=== PATIENT | female | born 1940 | race Caucasian/White ===

== ENCOUNTER 2016-04-26 14:10 | Emergency (ER) | payer MEDICARE ==
--- NOTE | 2016-04-26 15:33 | UC ---
Complaint Female HPI - HPI Summary HPI Summary: complaint of discomfort with urination that started approx yesterday increase in urgency and frequency of urination only able to urinate small amounts denies fever and chills denies lower back pain and abdominal pain hasn't taken any medication for her symptoms - History Of Current Complaint Chief Complaint: UCGU Stated Complaint: URINARY ISSUE Time Seen by Provider: 04/26/16 15:27 Hx Obtained From: Patient - Allergies/Home Medications Allergies/Adverse Reactions: Allergies Allergy/AdvReac Type Severity Reaction Status Date / Time Lisinopril Allergy Severe Anaphylatic Verified 04/26/16 15:10 Shock Amoxicillin Allergy Unknown Unknown Verified 04/26/16 15:10 Reaction Details CATS Allergy Severe ASTHMA Uncoded 04/26/16 15:10 Home Medications: Home Medications Loratadine [Claritin] 10 mg PO DAILY 04/26/16 [History Confirmed 04/26/16] PMH/Surg Hx/FS Hx/Imm Hx Previously Healthy: Yes Endocrine History Of: Reports: Diabetes - diet controlled Cardiovascular History Of: Reports: Hypertension - W/MEDS GI/ History Of: Reports: Gall Bladder Disease - S/p cholecystectomy, Kidney Stones - s/p surgery for removal in 1976 - Surgical History Surgical History: Yes Surgery Procedure, Year, and Place: Kidney stone removal, 1976. Cholecystectomy , [facility] [place], December 2013 - Family History Known Family History: Negative: Cardiac Disease, Hypertension, Diabetes Family History: non contributory - Social History Occupation: Retired Lives: With Family Alcohol Use: Rare Alcohol Amount: WINE Substance Use Type: None Smoking Status (MU): Never Smoked Tobacco Have You Smoked in the Last Year: No - Immunization History Most Recent Influenza Vaccination: Never Most Recent Tetanus Shot: Unknown Most Recent Pneumonia Vaccination: Never Review of Systems Constitutional: Negative Skin: Negative Eyes: Negative ENT: Negative Respiratory: Negative Cardiovascular: Negative Gastrointestinal: Negative Genitourinary: Dysuria, Frequency, Urgency Motor: Negative Neurovascular: Negative Musculoskeletal: Negative Neurological: Negative Psychological: Negative All Other Systems Reviewed And Are Negative: Yes Physical Exam Triage Information Reviewed: Yes Appearance: No Pain Distress, Well-Nourished Vital Signs: Initial Vital Signs Temp 98.7 F 04/26/16 15:04 Pulse 125 04/26/16 15:04 Resp 16 04/26/16 15:04 BP 171/85 04/26/16 15:04 Pulse Ox 99 02/19/17 15:04 Vital Signs Reviewed: Yes Eyes: Positive: Conjunctiva Clear ENT: Positive: Pharynx normal, TMs normal Neck: Positive: No Lymphadenopathy Respiratory: Positive: Lungs clear, Normal breath sounds, No respiratory distress Cardiovascular: Positive: No Murmur, Pulses Normal, Brisk Capillary Refill, Tachycardia Abdomen Description: Positive: Nontender, No Organomegaly, Soft. Negative: CVA Tenderness (R), CVA Tenderness (L), Distended, Guarding Bowel Sounds: Positive: Present Musculoskeletal: Positive: No Edema Neurological: Positive: Alert Psychological Exam: Normal Skin Exam: Normal Complaint Female Dx - Course Course Of Treatment: exam completed. will treat for UTI. discussed tachycardia - refuses IV fluids. discussed improtance o f increasing fluids and followup with PCP in 1-2 days- discussed s/s of when to seek care in the ED - Differential Dx/Diagnosis Differential Diagnosis/HQI/PQRI: Ureteral Stone, Urinary Tract Infection Provider Diagnoses: UTI Discharge - Discharge Plan Condition: Stable Disposition: HOME Prescriptions: Nitrofurantoin Monohyd Macro [Macrobid] 100 mg PO BID #10 cap Patient Education Materials: Urinary Tract Infection in Women (ED) Referrals: Jesus Hubbard MD [Primary Care Provider] - Additional Instructions: Start antibiotic as directed Increase fluids and rest Take acetaminophen or ibuprofen for fever or pain Please review your discharge instructions. If your symptoms do not improve please call your primary care provider or return to urgent care
[2016-04-26 16:00] VITALS: BP 145/90
== END 2016-04-26 16:05 | disposition home or self-care (01) ==
LOC: UCEAST 14:10
DX: N39.0 Urinary tract infection, site not specified (principal); E11.9 Type 2 diabetes mellitus without complications; I10 Essential (primary) hypertension; Z88.6 Allergy status to analgesic agent; Z88.1 Allergy status to other antibiotic agents
CPT/HCPCS: 81002; 87086; 99212; G0463

== ENCOUNTER 2017-12-01 14:10 | Emergency (ER) | payer MEDICARE ==
[2017-12-01] MEDS ORDERED: diPHENhydraMINE PO* 25 MG PO ONE (14:53)
[2017-12-01] MEDS ORDERED: predniSONE TAB* 20 MG PO ONE (14:53)
--- NOTE | 2017-12-01 14:56 | ED ---
Allergic Reaction/Systemic - HPI Summary HPI Summary: This patient is a 77 year old F presenting to ED with a chief complaint of L- sided tongue swelling since 0900 this morning. The CC is described as currently alleviated but is still sore. The patient rates the pain 0/10 in severity. Symptoms aggravated by nothing. Symptoms alleviated by spontaneous resolution. Patient denies SOB and CP. She had a similar episode last week but on the R side. - History of Current Complaint Chief Complaint: EDAllergicReaction Time Seen by Provider: 12/01/17 14:46 Hx Obtained From: Patient Onset/Duration: Sudden Onset, Started hours ago, Resolved Timing: Constant Severity Currently: None Pain Intensity: 0 Pain Scale Used: 0-10 Numeric Character: Swelling - of the L side of the tongue Aggravating Factor(s): Nothing Alleviating Factor(s): Other - spontaneous resolution Associated Signs And Symptoms: Positive: Other: - Patient denies SOB and CP. - Allergies/Home Medications Allergies/Adverse Reactions: Allergies Allergy/AdvReac Type Severity Reaction Status Date / Time lisinopril Allergy Severe Anaphylatic Verified 12/01/17 15:07 Shock amoxicillin Allergy Unknown Unknown Verified 12/01/17 15:07 Reaction Details CATS Allergy Severe ASTHMA Uncoded 04/26/16 15:10 Home Medications: Home Medications Sitagliptin (NF) [Januvia (NF)] 50 mg PO DAILY 12/01/17 [History Confirmed 12/01] PMH/Surg Hx/FS Hx/Imm Hx Endocrine/Hematology History: Reports: Hx Diabetes - diet controlled Cardiovascular History: Reports: Hx Hypertension - W/MEDS, Hx Rheumatic Fever - As a child Respiratory History: Reports: Hx Seasonal Allergies GI History: Reports: Hx Gall Bladder Disease - S/p cholecystectomy, Hx Gastroesophageal Reflux Disease, Other GI Disorders - Gallstones History: Reports: Hx Kidney Stones - s/p surgery for removal in 1976 Sensory History: Reports: Hx Contacts or Glasses Denies: Hx Hearing Aid Opthamlomology History: Reports: Hx Contacts or Glasses - Surgical History Surgery Procedure, Year, and Place: Kidney stone removal, 1976. Cholecystectomy , [facility] [place], December 2013 Hx Anesthesia Reactions: No Infectious Disease History: No Infectious Disease History: Denies: Hx Clostridium Difficile, Hx Hepatitis, Hx Human Immunodeficiency Virus (HIV), Hx of Known/Suspected MRSA, Hx Shingles, Hx Tuberculosis, Hx Known/ Suspected VRE, Hx Known/Suspected VRSA, History Other Infectious Disease, Traveled Outside the [place] in Last 30 Days - Family History Known Family History: Negative: Cardiac Disease, Hypertension, Diabetes Family History: non contributory - Social History Alcohol Use: Rare Alcohol Amount: WINE Substance Use Type: Reports: None Hx Tobacco Use: No Smoking Status (MU): Never Smoked Tobacco Have You Smoked in the Last Year: No Review of Systems Positive: Other - L-sided tongue swelling Negative: Chest Pain Negative: Shortness Of Breath All Other Systems Reviewed And Are Negative: Yes Physical Exam - Summary Physical Exam Summary: Appearance: Well appearing, no pain distress Skin: warm, dry, reflects adequate perfusion Head/face: normal Eyes: EOMI, ALEX ENT: Swollen tongue on the L side Neck: supple, non-tender Respiratory: CTA, breath sounds present Cardiovascular: RRR, pulses symmetrical Abdomen: non-tender, soft Bowel: present Musculoskeletal: normal, strength/ROM intact Neuro: normal, sensory motor intact, A&Ox3 Triage Information Reviewed: Yes Vital Signs On Initial Exam: Initial Vitals Temp Pulse Resp BP Pulse Ox 98 F 125 21 168/109 98 12/01/17 14:15 12/01/17 14:15 12/01/17 14:15 12/01/17 14:15 12/01/17 14:15 Vital Signs Reviewed: Yes Diagnostics - Vital Signs Vital Signs Temp Pulse Resp BP Pulse Ox 12/01/17 14:46 146/94 12/01/17 14:42 125 96 12/01/17 14:15 98 F 125 21 168/109 98 - Laboratory Lab Statement: Any lab studies that have been ordered have been reviewed, and results considered in the medical decision making process. Allergic Reaction Course/Dx - Course Assessment/Plan: This patient is a 77 year old F presenting to ED with a chief complaint of L-sided tongue swelling since 0900 this morning. In the ED course, the patient was given Benadryl and prednisone. The patient will be discharged and patient understands and agrees with this plan. - Diagnoses Differential Diagnosis/HQI/PQRI: Positive: Angioedema, Local Allergic Reaction, Urticaria, Other - allergic reaction Provider Diagnoses: Allergic reaction Discharge - Sign-Out/Discharge Documenting (check all that apply): Patient Departure - discharge - Discharge Plan Condition: Stable Disposition: HOME Prescriptions: diPHENhydraMINE PO* [Benadryl PO 25 MG TAB*] 25 mg PO TID PRN #15 tab MDD 3 PRN Reason: Allergy Symptoms predniSONE TAB* [Deltasone 20 MG TAB*] 40 mg PO DAILY #4 tab Patient Education Materials: General Allergic Reaction (ED), Allergy Testing ( ED) Referrals: Jesus Hubbard MD [Primary Care Provider] - 3 Days Additional Instructions: PLEASE RETURN TO THE ED FOR ANY NEW OR WORSENING SYMPTOMS. - Billing Disposition and Condition Condition: STABLE Disposition: Home - Attestation Statements Document Initiated by Sivaibe: Yes Documenting Scribe: Anderson Hobson Provider For Whom Dontia is Documenting (Include Credential): Aftab Clark MD Scribe Attestation: Anderson Hollis, scribed for Aftab Clark MD on 12/01/17 at 1740. Scribe Documentation Reviewed: Yes Provider Attestation: The documentation as recorded by the Anderson quiñones accurately reflects the service I personally performed and the decisions made by , Aftab Clark MD
[2017-12-01 16:09] VITALS: BP 144/90
== END 2017-12-01 16:09 | disposition home or self-care (01) ==
LOC: ED 14:10
DX: T78.40XA Allergy, unspecified, initial encounter (principal); I10 Essential (primary) hypertension; E11.9 Type 2 diabetes mellitus without complications; Z79.899 Other long term (current) drug therapy; Z88.8 Allergy status to other drugs, medicaments and biological substances; Z88.3 Allergy status to other anti-infective agents
CPT/HCPCS: 99283; A9270-GY; J7512

== ENCOUNTER 2020-03-08 14:27 | Inpatient (IN) ==
[2020-03-08] MEDS ORDERED: NS 0.9% 1000 ml BAG 1,000 ML IV.FLUID IV ONE (14:49)
[2020-03-08] MEDS ORDERED: NS 0.9% 1000 ml BAG 2,000 ML IV ONE (14:49)
[2020-03-08 15:09] LABS: ABS Basophils 0.1 10^3/ul (0-0.2); ABS Eosinophils 0.2 10^3/ul (0-0.6); ABS Lymphocytes 1.1 10^3/ul (1.0-4.8); ABS Monocytes 0.6 10^3/ul (0-0.8); ABS Neutrophils 9.2 10^3/ul (1.5-7.7); Eosinophil % 1.8 %; Hematocrit 43 % (35-47); Hemoglobin 14.8 g/dL (12.0-16.0); Lymphocyte % 9.9 %; Mean Corpuscular HGB Conc 35 g/dL (31-36); Mean Corpuscular Hemoglobin 27 pg (27-31); Mean Corpuscular Volume 78 fL (80-97); Mean Platelet Volume 7.9 fL (7.4-10.4); Platelet Count 312 10^3/uL (150-450); Red Blood Count 5.54 10^6 /uL (3.70-4.87); Red Cell Distribution Width 15 % (10-15); White Blood Count 11.3 10^3/uL (3.5-10.8)
[2020-03-08 15:25] LABS: Albumin 4.3 g/dL (3.2-5.2); Albumin/Globulin Ratio 1.1 (1-3); BUN/Creatinine Ratio 12.5 (8-20); C Reactive Protein 44.63 mg/L (<8.01); Calcium 10.1 mg/dL (8.6-10.3); EGFR African American 94.1 (>60); EGFR Non-African American 77.7 (>60); Magnesium 1.1 mg/dL (1.9-2.7); Potassium 2.8 mmol/L (3.5-5.0); Total Bilirubin 0.5 mg/dL (0.2-1.0); Total Protein 8.3 g/dL (6.4-8.9)
[2020-03-08] MEDS ORDERED: Iodixanol (CONTRAST) 320 MG/ML 100 ML SDV IV ONE (15:28)
[2020-03-08] MEDS ORDERED: Magnesium Sulf 4 GM/100 ML IV 4,000 MG/100 ML BAG IVPB ONE ×2 (15:31→23:00)
[2020-03-08] MEDS ORDERED: Potassium Chlor 20 meq TAB.ER PO ONE ×2 (15:32→23:24)
[2020-03-08 15:36] LABS: Urine Appearance Clear; Urine Bilirubin Negative (Negative); Urine Blood Negative (Negative); Urine Color Yellow; Urine Glucose Negative (Negative); Urine Ketones Negative (Negative); Urine Nitrite Negative (Negative); Urine Protein Negative (Negative); Urine Specific Gravity 1.004 (1.010-1.030); Urine Urobilinogen Negative (Negative)
[2020-03-08] MEDS ORDERED: Potassium Chloride LIQUID 20 MEQ/15 ML LIQUID PO ONE (16:27)
[2020-03-08] MEDS ORDERED: Ciprofloxacin 400mg IVPREMIX 400 MG/200 ML BAG IVPB ONE (17:11)
[2020-03-08] MEDS ORDERED: metroNIDAZOLE IV 500 MG/100ML 500 MG/100 ML BAG IVPB ONE (17:11)
[2020-03-08] MEDS ORDERED: NS 0.9% 1000 ml BAG 1,000 ML IV SCH (18:00)
[2020-03-08] MEDS: Heparin 5000 UNITS/ML 1 mL VIAL SUBCUT SCH (21:49)
[2020-03-08 23:20] LABS: BUN/Creatinine Ratio 10.5 (8-20); Calcium 8.8 mg/dL (8.6-10.3); EGFR African American 123.2 (>60); EGFR Non-African American 101.8 (>60); Potassium 3.1 mmol/L (3.5-5.0)
[2020-03-08] MEDS: NS 0.9% 1000 ml BAG 1,000 ML IV SCH (23:24)
[2020-03-09] MEDS: Potassium Chloride LIQUID 20 MEQ/15 ML LIQUID PO SCH ×2 (00:30→01:57)
[2020-03-09] MEDS ORDERED: Potassium Chlor 20 meq TAB.ER PO ONE (00:30)
[2020-03-09] MEDS ORDERED: metroNIDAZOLE IV 250 MG/50ML 50 ML IVPB SCH (04:00)
[2020-03-09] MEDS: metroNIDAZOLE IV 500 MG/100ML 100 ML IVPB SCH ×3 (04:15→21:26)
[2020-03-09] MEDS: Heparin 5000 UNITS/ML 1 mL VIAL SUBCUT SCH ×3 (05:39→20:08)
[2020-03-09] MEDS: Ciprofloxacin 400mg IVPREMIX 400 MG/200 ML BAG IVPB SCH ×2 (05:39→20:13)
[2020-03-09 07:18] LABS: ABS Basophils 0.1 10^3/ul (0-0.2); ABS Eosinophils 0.4 10^3/ul (0-0.6); ABS Lymphocytes 2.1 10^3/ul (1.0-4.8); ABS Monocytes 0.7 10^3/ul (0-0.8); ABS Neutrophils 4.3 10^3/ul (1.5-7.7); Eosinophil % 5.3 %; Hematocrit 37 % (35-47); Hemoglobin 12.1 g/dL (12.0-16.0); Lymphocyte % 28.1 %; Mean Corpuscular HGB Conc 33 g/dL (31-36); Mean Corpuscular Hemoglobin 26 pg (27-31); Mean Corpuscular Volume 79 fL (80-97); Mean Platelet Volume 7.9 fL (7.4-10.4); Platelet Count 263 10^3/uL (150-450); Red Blood Count 4.64 10^6 /uL (3.70-4.87); Red Cell Distribution Width 15 % (10-15); White Blood Count 7.6 10^3/uL (3.5-10.8)
[2020-03-09 07:22] LABS: Anion Gap 6 mmol/L (2-11); BUN/Creatinine Ratio 8.9 (8-20); Blood Urea Nitrogen 5 mg/dL (6-24); CO2 Carbon Dioxide 24 mmol/L (22-32); Calcium 8.1 mg/dL (8.6-10.3); Chloride 108 mmol/L (101-111); EGFR African American 125.7 (>60); EGFR Non-African American 103.9 (>60); Glucose 171 mg/dL (70-100); Magnesium 2.7 mg/dL (1.9-2.7); Potassium 3.6 mmol/L (3.5-5.0); Sodium 138 mmol/L (135-145)
[2020-03-09 07:24] LABS: % Iron Saturation 11 % (15-55); Iron 34 ug/dL (50-212); Total Iron Binding Capacity 312 mcg/dL (250-450); Transferrin 223 mg/dL (203-362); Unsaturated Iron Binding < 297 ug/dL
[2020-03-09 07:43] LABS: Ferritin 46.8 ng/mL (11-307)
[2020-03-09] MEDS: NS 0.9% 1000 ml BAG 1,000 ML IV SCH ×2 (08:55→18:18)
[2020-03-10] MEDS: NS 0.9% 1000 ml BAG 1,000 ML IV SCH (04:26)
[2020-03-10] MEDS: Heparin 5000 UNITS/ML 1 mL VIAL SUBCUT SCH ×3 (05:04→22:40)
[2020-03-10] MEDS: metroNIDAZOLE IV 500 MG/100ML 100 ML IVPB SCH ×3 (05:04→22:41)
[2020-03-10 07:03] LABS: ABS Basophils 0.1 10^3/ul (0-0.2); ABS Eosinophils 0.5 10^3/ul (0-0.6); ABS Lymphocytes 1.9 10^3/ul (1.0-4.8); ABS Monocytes 0.5 10^3/ul (0-0.8); ABS Neutrophils 4.2 10^3/ul (1.5-7.7); Hematocrit 38 % (35-47); Hemoglobin 12.7 g/dL (12.0-16.0); Mean Corpuscular HGB Conc 34 g/dL (31-36); Mean Corpuscular Hemoglobin 27 pg (27-31); Mean Corpuscular Volume 79 fL (80-97); Mean Platelet Volume 7.9 fL (7.4-10.4); Platelet Count 270 10^3/uL (150-450); Red Blood Count 4.76 10^6 /uL (3.70-4.87); Red Cell Distribution Width 15 % (10-15); White Blood Count 7.2 10^3/uL (3.5-10.8)
[2020-03-10 07:23] LABS: Albumin 3.7 g/dL (3.2-5.2); Albumin/Globulin Ratio 1.1 (1-3); BUN/Creatinine Ratio 8.8 (8-20); Calcium 8.6 mg/dL (8.6-10.3); EGFR African American 123.2 (>60); EGFR Non-African American 101.8 (>60); Globulin 3.5 g/dL (2-4); Potassium 3.3 mmol/L (3.5-5.0); Total Bilirubin 0.4 mg/dL (0.2-1.0); Total Protein 7.2 g/dL (6.4-8.9)
[2020-03-10] MEDS ORDERED: Potassium Chlor 20 meq TAB.ER PO ONE (07:27)
[2020-03-10] MEDS: Ciprofloxacin 400mg IVPREMIX 400 MG/200 ML BAG IVPB SCH ×2 (10:17→20:55)
[2020-03-11] MEDS: NS 0.9% 1000 ml BAG 1,000 ML IV SCH ×2 (02:38→13:26)
[2020-03-11 05:50] LABS: Hematocrit 38 % (35-47); Hemoglobin 12.7 g/dL (12.0-16.0); Mean Corpuscular HGB Conc 34 g/dL (31-36); Mean Corpuscular Hemoglobin 26 pg (27-31); Mean Corpuscular Volume 78 fL (80-97); Mean Platelet Volume 7.5 fL (7.4-10.4); Platelet Count 267 10^3/uL (150-450); Red Blood Count 4.84 10^6 /uL (3.70-4.87); Red Cell Distribution Width 15 % (10-15); White Blood Count 8.5 10^3/uL (3.5-10.8)
[2020-03-11] MEDS: Heparin 5000 UNITS/ML 1 mL VIAL SUBCUT SCH ×3 (05:52→22:55)
[2020-03-11] MEDS: metroNIDAZOLE IV 500 MG/100ML 100 ML IVPB SCH ×3 (05:52→22:51)
[2020-03-11 05:59] LABS: INR 1.16 (0.82-1.09)
[2020-03-11 06:07] LABS: Albumin 3.7 g/dL (3.2-5.2); Albumin/Globulin Ratio 1.1 (1-3); BUN/Creatinine Ratio 4.9 (8-20); Calcium 8.6 mg/dL (8.6-10.3); EGFR African American 113.9 (>60); EGFR Non-African American 94.1 (>60); Globulin 3.4 g/dL (2-4); Magnesium 1.5 mg/dL (1.9-2.7); Potassium 3.1 mmol/L (3.5-5.0); Total Bilirubin 0.5 mg/dL (0.2-1.0); Total Protein 7.1 g/dL (6.4-8.9)
[2020-03-11] MEDS: Ciprofloxacin 400mg IVPREMIX 400 MG/200 ML BAG IVPB SCH ×2 (09:39→21:28)
[2020-03-11] MEDS ORDERED: Magnesium Sulfate IV 3 GM in NS 0.9% 100 ml BAG 100 ML IVPB ONE (21:18)
[2020-03-12] MEDS: Potassium Chlor 20 meq TAB.ER PO ONE ×2 (01:26→01:29)
[2020-03-12] MEDS ORDERED: Potassium Chloride LIQUID 20 MEQ/15 ML LIQUID PO ONE (02:00)
[2020-03-12] MEDS: KCL 20 MEQ/100 ML IVPREMIX 20 MEQ/100 ML BAG IV SCH ×2 (02:25→07:17)
[2020-03-12] MEDS ORDERED: Metoclopramide 5 MG/ML VIAL (10 mg) IV PRN (03:09)
[2020-03-12] MEDS: Heparin 5000 UNITS/ML 1 mL VIAL SUBCUT SCH ×3 (05:23→23:00)
[2020-03-12] MEDS: metroNIDAZOLE IV 500 MG/100ML 100 ML IVPB SCH (06:02)
[2020-03-12] MEDS ORDERED: Ondansetron 4 mg VIAL 2 MG/ML 2 ml VIAL IV ONE (06:17)
[2020-03-12] MEDS ORDERED: KCL 20 MEQ/100 ML IVPREMIX 20 MEQ/100 ML BAG ONE (07:14)
[2020-03-12 07:34] LABS: ABS Basophils 0.1 10^3/ul (0-0.2); ABS Eosinophils 0.3 10^3/ul (0-0.6); ABS Lymphocytes 1.7 10^3/ul (1.0-4.8); ABS Monocytes 0.5 10^3/ul (0-0.8); ABS Neutrophils 6.5 10^3/ul (1.5-7.7); Eosinophil % 2.9 %; Hematocrit 38 % (35-47); Hemoglobin 12.7 g/dL (12.0-16.0); Lymphocyte % 18.5 %; Mean Corpuscular HGB Conc 33 g/dL (31-36); Mean Corpuscular Hemoglobin 26 pg (27-31); Mean Corpuscular Volume 79 fL (80-97); Mean Platelet Volume 7.5 fL (7.4-10.4); Platelet Count 269 10^3/uL (150-450); Red Blood Count 4.85 10^6 /uL (3.70-4.87); Red Cell Distribution Width 15 % (10-15)
[2020-03-12 07:51] LABS: BUN/Creatinine Ratio 5.2 (8-20); Calcium 8.3 mg/dL (8.6-10.3); EGFR African American 120.7 (>60); EGFR Non-African American 99.8 (>60); Magnesium 2.1 mg/dL (1.9-2.7); Potassium 3.6 mmol/L (3.5-5.0)
[2020-03-12] MEDS: Ciprofloxacin 400mg IVPREMIX 400 MG/200 ML BAG IVPB SCH (10:13)
[2020-03-12] MEDS ORDERED: fentaNYL 100 mcg/2 ml 50 MCG/ML VIAL ONE (11:42)
[2020-03-12] MEDS: metroNIDAZOLE IV 500 MG/100ML 500 MG/100 ML BAG IVPB SCH (16:51)
[2020-03-12] MEDS ORDERED: cefTRIAXone 1 gm/50 mL NS BAG 1 GM/50 ML BAG IVPB SCH (21:00)
[2020-03-13] MEDS: metroNIDAZOLE IV 500 MG/100ML 500 MG/100 ML BAG IVPB SCH (06:32)
[2020-03-13] MEDS: Heparin 5000 UNITS/ML 1 mL VIAL SUBCUT SCH ×3 (06:32→21:57)
[2020-03-13 07:08] LABS: ABS Basophils 0.1 10^3/ul (0-0.2); ABS Eosinophils 0.3 10^3/ul (0-0.6); ABS Monocytes 0.7 10^3/ul (0-0.8); Eosinophil % 3.4 %; Hematocrit 38 % (35-47); Hemoglobin 12.8 g/dL (12.0-16.0); Lymphocyte % 20.2 %; Mean Corpuscular HGB Conc 33 g/dL (31-36); Mean Corpuscular Hemoglobin 27 pg (27-31); Mean Corpuscular Volume 80 fL (80-97); Mean Platelet Volume 7.9 fL (7.4-10.4); Platelet Count 249 10^3/uL (150-450); Red Blood Count 4.82 10^6 /uL (3.70-4.87); Red Cell Distribution Width 15 % (10-15); White Blood Count 10.1 10^3/uL (3.5-10.8)
[2020-03-13 07:13] LABS: BUN/Creatinine Ratio 5.8 (8-20); Calcium 8.9 mg/dL (8.6-10.3); EGFR African American 98.8 (>60); EGFR Non-African American 81.7 (>60); Magnesium 1.8 mg/dL (1.9-2.7); Potassium 3.2 mmol/L (3.5-5.0)
[2020-03-13] MEDS ORDERED: Potassium Chlor 20 meq TAB.ER PO ONE (07:52)
[2020-03-13] MEDS: Sulfamethox/Trimethoprim DS TAB 800/160 mg PO SCH (21:58)
[2020-03-14 06:51] LABS: ABS Basophils 0.1 10^3/ul (0-0.2); ABS Eosinophils 0.3 10^3/ul (0-0.6); ABS Lymphocytes 2.1 10^3/ul (1.0-4.8); ABS Monocytes 0.7 10^3/ul (0-0.8); ABS Neutrophils 6.3 10^3/ul (1.5-7.7); Eosinophil % 3.4 %; Hematocrit 37 % (35-47); Hemoglobin 12.5 g/dL (12.0-16.0); Mean Corpuscular HGB Conc 34 g/dL (31-36); Mean Corpuscular Hemoglobin 27 pg (27-31); Mean Corpuscular Volume 79 fL (80-97); Mean Platelet Volume 7.9 fL (7.4-10.4); Platelet Count 249 10^3/uL (150-450); Red Blood Count 4.73 10^6 /uL (3.70-4.87); Red Cell Distribution Width 15 % (10-15); White Blood Count 9.6 10^3/uL (3.5-10.8)
[2020-03-14 07:07] LABS: Albumin 3.5 g/dL (3.2-5.2); Albumin/Globulin Ratio 1.1 (1-3); BUN/Creatinine Ratio 6.8 (8-20); EGFR African American 91.1 (>60); EGFR Non-African American 75.3 (>60); Globulin 3.2 g/dL (2-4); Potassium 3.4 mmol/L (3.5-5.0); Total Bilirubin 0.4 mg/dL (0.2-1.0); Total Protein 6.7 g/dL (6.4-8.9)
[2020-03-14] MEDS: Heparin 5000 UNITS/ML 1 mL VIAL SUBCUT SCH (07:38)
[2020-03-14 08:38] LABS: Magnesium 1.6 mg/dL (1.9-2.7)
[2020-03-14] MEDS ORDERED: Magnesium Sulf 4 GM/100 ML IV 4,000 MG/100 ML BAG IVPB ONE (08:49)
[2020-03-14] MEDS: Sulfamethox/Trimethoprim DS TAB 800/160 mg PO SCH (10:49)
[2020-03-14 13:48] VITALS: BP 102/58
== END 2020-03-14 16:25 | disposition home health service (06) | DRG 392 ==
LOC: ED 14:27 → MEDTELE 20:38
PROVIDERS: ADMIT Internal Medicine; ATTEND Internal Medicine

== ENCOUNTER 2020-04-30 21:19 | Inpatient (IN) ==
[2020-04-30 21:52] LABS: Urine Appearance Clear; Urine Bilirubin Negative (Negative); Urine Blood Negative (Negative); Urine Color Yellow; Urine Glucose Negative (Negative); Urine Ketones Negative (Negative); Urine Nitrite Negative (Negative); Urine Protein Negative (Negative); Urine Urobilinogen Negative (Negative)
[2020-04-30] MEDS ORDERED: NS 0.9% 1000 ml BAG 1,000 ML IV.FLUID IV ONE (22:50)
[2020-04-30] MEDS ORDERED: metroNIDAZOLE IV 500 MG/100ML 500 MG/100 ML BAG IVPB ONE (22:55)
[2020-04-30] MEDS ORDERED: Cefepime 2 GM in NS 0.9% 50 ML 50 ML IVPB ONE (22:55)
[2020-04-30] MEDS ORDERED: Vancomycin 1,000 MG in NS 0.9% 250 ml 250 ML IVPB ONE (23:00)
[2020-04-30 23:10] LABS: ABS Basophils 0.1 10^3/ul (0-0.2); ABS Eosinophils 0.2 10^3/ul (0-0.6); ABS Lymphocytes 1.8 10^3/ul (1.0-4.8); ABS Monocytes 0.7 10^3/ul (0-0.8); ABS Neutrophils 14.2 10^3/ul (1.5-7.7); Eosinophil % 1.4 %; Hematocrit 41 % (35-47); Hemoglobin 13.2 g/dL (12.0-16.0); Lymphocyte % 10.8 %; Mean Corpuscular HGB Conc 33 g/dL (31-36); Mean Corpuscular Hemoglobin 25 pg (27-31); Mean Corpuscular Volume 78 fL (80-97); Mean Platelet Volume 7.8 fL (7.4-10.4); Platelet Count 300 10^3/uL (150-450); Red Blood Count 5.22 10^6 /uL (3.70-4.87); Red Cell Distribution Width 15 % (10-15); White Blood Count 17.1 10^3/uL (3.5-10.8)
[2020-04-30 23:19] LABS: Activated Partial Thrombo Time 27.5 seconds (26.0-38.0); INR 1.23 (0.82-1.09)
[2020-04-30 23:28] LABS: ALT 8 U/L (7-52); AST 16 U/L (13-39); Albumin 3.9 g/dL (3.2-5.2); Alkaline Phosphatase 107 U/L (34-104); BUN/Creatinine Ratio 11.7 (8-20); Blood Urea Nitrogen 7 mg/dL (6-24); C Reactive Protein 39.18 mg/L (<8.01); CO2 Carbon Dioxide 26 mmol/L (22-32); Calcium 7.7 mg/dL (8.6-10.3); Chloride 100 mmol/L (101-111); EGFR African American 116.1 (>60); EGFR Non-African American 95.9 (>60); Globulin 3.8 g/dL (2-4); Glucose 167 mg/dL (70-100); Sodium 138 mmol/L (135-145); Total Protein 7.7 g/dL (6.4-8.9)
[2020-04-30 23:31] LABS: Anion Gap 12 mmol/L (2-11); Potassium 2.6 mmol/L (3.5-5.0)
[2020-04-30] MEDS ORDERED: Cefepime 2 GM in Dextrose 2 GM/50 ML BAG IV ONE (23:45)
[2020-04-30] MEDS ORDERED: Iodixanol (CONTRAST) 320 MG/ML 100 ML SDV IV ONE (23:59)
[2020-05-01 00:48] LABS: Troponin I 0.01 ng/mL (<0.03)
[2020-05-01] MEDS: KCL 10 MEQ/50 ML IVPREMIX 10 MEQ/50 ML BAG IV SCH ×2 (01:03→02:28)
[2020-05-01] MEDS ORDERED: Potassium Chloride LIQUID 20 MEQ/15 ML LIQUID PO ONE (04:00)
[2020-05-01] MEDS: Heparin 5000 UNITS/ML 1 mL VIAL SUBCUT SCH ×3 (04:39→22:43)
[2020-05-01] MEDS: NS 0.9% 1000 ml BAG 1,000 ML IV SCH ×2 (04:46→15:40)
[2020-05-01] MEDS: Ondansetron 4 mg VIAL 2 MG/ML 2 ml VIAL IV PRN ×2 (05:17→18:01)
[2020-05-01 07:14] LABS: ABS Eosinophils 0.2 10^3/ul (0-0.6); ABS Lymphocytes 2.2 10^3/ul (1.0-4.8); ABS Monocytes 0.6 10^3/ul (0-0.8); ABS Neutrophils 7.3 10^3/ul (1.5-7.7); Eosinophil % 2.3 %; Hematocrit 36 % (35-47); Hemoglobin 11.9 g/dL (12.0-16.0); Lymphocyte % 21.4 %; Mean Corpuscular HGB Conc 33 g/dL (31-36); Mean Corpuscular Hemoglobin 26 pg (27-31); Mean Corpuscular Volume 78 fL (80-97); Mean Platelet Volume 8.5 fL (7.4-10.4); Platelet Count 256 10^3/uL (150-450); Red Blood Count 4.64 10^6 /uL (3.70-4.87); Red Cell Distribution Width 15 % (10-15); White Blood Count 10.4 10^3/uL (3.5-10.8)
[2020-05-01 07:37] LABS: BUN/Creatinine Ratio 9.3 (8-20); EGFR African American 131.1 (>60); EGFR Non-African American 108.4 (>60); Potassium 2.9 mmol/L (3.5-5.0)
[2020-05-01] MEDS: KCL 20 MEQ/100 ML IVPREMIX 20 MEQ/100 ML BAG IV SCH ×2 (08:54→12:18)
[2020-05-01] MEDS: metroNIDAZOLE IV 500 MG/100ML 500 MG/100 ML BAG IVPB SCH ×2 (09:00→17:44)
[2020-05-01] MEDS: cefTRIAXone 1 gm/50 mL NS BAG 1 GM/50 ML BAG IVPB SCH (10:35)
[2020-05-01] MEDS ORDERED: PEG 3000 GI LAVAGE 1 GALLON PO ONE (11:20)
[2020-05-02] MEDS: metroNIDAZOLE IV 500 MG/100ML 500 MG/100 ML BAG IVPB SCH ×3 (00:53→16:47)
[2020-05-02] MEDS: NS 0.9% 1000 ml BAG 1,000 ML IV SCH ×2 (04:26→15:30)
[2020-05-02 04:59] LABS: ABS Basophils 0.1 10^3/ul (0-0.2); ABS Eosinophils 0.3 10^3/ul (0-0.6); ABS Lymphocytes 1.8 10^3/ul (1.0-4.8); ABS Monocytes 0.5 10^3/ul (0-0.8); ABS Neutrophils 4.2 10^3/ul (1.5-7.7); Eosinophil % 4.9 %; Hematocrit 36 % (35-47); Hemoglobin 12.1 g/dL (12.0-16.0); Lymphocyte % 26.2 %; Mean Corpuscular HGB Conc 33 g/dL (31-36); Mean Corpuscular Hemoglobin 26 pg (27-31); Mean Corpuscular Volume 78 fL (80-97); Mean Platelet Volume 8.2 fL (7.4-10.4); Platelet Count 251 10^3/uL (150-450); Red Blood Count 4.65 10^6 /uL (3.70-4.87); Red Cell Distribution Width 15 % (10-15); White Blood Count 6.9 10^3/uL (3.5-10.8)
[2020-05-02 05:16] LABS: BUN/Creatinine Ratio 5.7 (8-20); Calcium 7.1 mg/dL (8.6-10.3); EGFR Non-African American 110.7 (>60)
[2020-05-02 05:19] LABS: Magnesium 0.5 mg/dL (1.9-2.7); Potassium 2.4 mmol/L (3.5-5.0)
[2020-05-02] MEDS ORDERED: Magnesium Sulf 4 GM/100 ML IV 4,000 MG/100 ML BAG IVPB ONE (05:27)
[2020-05-02] MEDS: KCL 20 MEQ/100 ML IVPREMIX 20 MEQ/100 ML BAG IV SCH ×4 (05:51→20:55)
[2020-05-02] MEDS: Heparin 5000 UNITS/ML 1 mL VIAL SUBCUT SCH ×3 (05:58→20:55)
[2020-05-02] MEDS: cefTRIAXone 1 gm/50 mL NS BAG 1 GM/50 ML BAG IVPB SCH (07:31)
[2020-05-02] MEDS ORDERED: fentaNYL 100 mcg/2 ml 50 MCG/ML VIAL ONE (13:43)
[2020-05-02] MEDS ORDERED: Midazolam 10 mg/10 ml VIAL 1 mg/ml 10 ml VIAL (10 mg) ONE (13:43)
[2020-05-02] MEDS ORDERED: KCL 20 MEQ/100 ML IVPREMIX 20 MEQ/100 ML BAG ONE (15:34)
[2020-05-02 18:13] LABS: BUN/Creatinine Ratio 5.7 (8-20); Calcium 7.5 mg/dL (8.6-10.3); EGFR Non-African American 110.7 (>60)
[2020-05-02 19:26] LABS: Magnesium 1.9 mg/dL (1.9-2.7)
[2020-05-03] MEDS: metroNIDAZOLE IV 500 MG/100ML 500 MG/100 ML BAG IVPB SCH ×2 (01:08→08:57)
[2020-05-03] MEDS: NS 0.9% 1000 ml BAG 1,000 ML IV SCH ×2 (01:13→12:49)
[2020-05-03] MEDS: KCL 20 MEQ/100 ML IVPREMIX 20 MEQ/100 ML BAG IV SCH (01:17)
[2020-05-03 05:11] LABS: BUN/Creatinine Ratio 4.3 (8-20); Calcium 7.2 mg/dL (8.6-10.3); EGFR African American 157.8 (>60); EGFR Non-African American 130.4 (>60); Magnesium 1.6 mg/dL (1.9-2.7)
[2020-05-03] MEDS: Heparin 5000 UNITS/ML 1 mL VIAL SUBCUT SCH ×2 (05:21→14:18)
[2020-05-03] MEDS: cefTRIAXone 1 gm/50 mL NS BAG 1 GM/50 ML BAG IVPB SCH (08:01)
[2020-05-03] MEDS ORDERED: Magnesium Sulfate 2 gm BAG 2 GM/50 ML BAG IVPB ONE (08:26)
[2020-05-03] MEDS ORDERED: KCL 20 MEQ/100 ML IVPREMIX 20 MEQ/100 ML BAG IV SCH (09:00)
[2020-05-03 11:08] VITALS: BP 145/72
== END 2020-05-03 17:20 | disposition home or self-care (01) | DRG 392 ==
LOC: ED 21:19 → SSU 05-01 02:06
PROVIDERS: ADMIT Internal Medicine; ATTEND Surgery

== ENCOUNTER 2020-08-12 10:00 | Inpatient (IN) ==
[2020-08-12] MEDS ORDERED: NS 0.9% 1000 ml BAG 1,000 ML IV ONE ×2 (10:18→18:26)
[2020-08-12] MEDS ORDERED: Ondansetron 4 mg VIAL 2 MG/ML 2 ml VIAL IV ONE ×2 (10:18→13:01)
[2020-08-12 10:45] LABS: ABS Basophils 0.1 10^3/ul (0-0.2); ABS Eosinophils 0.1 10^3/ul (0-0.6); ABS Lymphocytes 1.1 10^3/ul (1.0-4.8); ABS Monocytes 0.7 10^3/ul (0-0.8); ABS Neutrophils 14.4 10^3/ul (1.5-7.7); Eosinophil % 0.7 %; Hematocrit 42 % (35-47); Hemoglobin 14.1 g/dL (12.0-16.0); Mean Corpuscular HGB Conc 34 g/dL (31-36); Mean Corpuscular Hemoglobin 26 pg (27-31); Mean Corpuscular Volume 77 fL (80-97); Mean Platelet Volume 8.4 fL (7.4-10.4); Platelet Count 283 10^3/uL (150-450); Red Blood Count 5.45 10^6 /uL (3.70-4.87); Red Cell Distribution Width 16 % (10-15); White Blood Count 16.4 10^3/uL (3.5-10.8)
[2020-08-12 11:04] LABS: Calcium 8.3 mg/dL (8.6-10.3); EGFR African American 113.9 (>60); EGFR Non-African American 94.1 (>60); Potassium 2.9 mmol/L (3.5-5.0); Total Protein 7.7 g/dL (6.4-8.9)
[2020-08-12 11:05] LABS: Albumin/Globulin Ratio 1.1 (1-3); C Reactive Protein 47.8 mg/L (<8.01); Globulin 3.7 g/dL (2-4); Total Bilirubin 0.6 mg/dL (0.2-1.0)
[2020-08-12 11:09] LABS: Magnesium 0.7 mg/dL (1.9-2.7)
[2020-08-12] MEDS ORDERED: KCL 20 MEQ/100 ML IVPREMIX 20 MEQ/100 ML BAG IV ONE (11:10)
[2020-08-12] MEDS ORDERED: Potassium Chlor 20 meq TAB.ER PO ONE ×2 (11:10→16:30)
[2020-08-12] MEDS ORDERED: Magnesium Sulf 4 GM/100 ML IV 4,000 MG/100 ML BAG IVPB ONE ×2 (11:10→15:00)
[2020-08-12] MEDS ORDERED: NS 0.9% 1000 ml BAG 1,000 ML IV SCH (13:15)
[2020-08-12] MEDS ORDERED: Metoclopramide 5 MG/ML VIAL (10 mg) IV SLOW PU ONE (14:49)
[2020-08-12] MEDS: Enoxaparin 40 MG/0.4 ML SYR SUBCUT SCH (18:09)
[2020-08-12] MEDS ORDERED: Ondansetron 4 mg VIAL 2 MG/ML 2 ml VIAL ONE (20:30)
[2020-08-12] MEDS: Ondansetron 4 mg VIAL 2 MG/ML 2 ml VIAL IV PRN (20:33)
[2020-08-12] MEDS: Potassium Chlor 20 meq TAB.ER PO SCH (22:23)
[2020-08-13 06:52] LABS: ABS Eosinophils 0.1 10^3/ul (0-0.6); ABS Lymphocytes 1.4 10^3/ul (1.0-4.8); ABS Monocytes 0.9 10^3/ul (0-0.8); ABS Neutrophils 9.7 10^3/ul (1.5-7.7); Eosinophil % 0.6 %; Hematocrit 35 % (35-47); Hemoglobin 11.5 g/dL (12.0-16.0); Lymphocyte % 11.2 %; Mean Corpuscular HGB Conc 33 g/dL (31-36); Mean Corpuscular Hemoglobin 26 pg (27-31); Mean Corpuscular Volume 77 fL (80-97); Mean Platelet Volume 7.7 fL (7.4-10.4); Platelet Count 244 10^3/uL (150-450); Red Blood Count 4.47 10^6 /uL (3.70-4.87); Red Cell Distribution Width 16 % (10-15)
[2020-08-13 07:10] LABS: Calcium 7.4 mg/dL (8.6-10.3); EGFR African American 128.4 (>60); EGFR Non-African American 106.1 (>60); Magnesium 2.3 mg/dL (1.9-2.7)
[2020-08-13 07:14] LABS: Potassium 2.7 mmol/L (3.5-5.0)
[2020-08-13] MEDS ORDERED: Potassium Chlor 20 meq TAB.ER PO ONE ×3 (07:24→20:21)
[2020-08-13] MEDS ORDERED: Calcium Gluconate 2 GM in NS 0.9% 100 ml BAG 100 ML IV ONE (08:00)
[2020-08-13] MEDS: Potassium Chlor 20 meq TAB.ER PO SCH (08:55)
[2020-08-13 13:18] LABS: Calcium 8.6 mg/dL (8.6-10.3); EGFR African American 136.9 (>60); EGFR Non-African American 113.2 (>60); Potassium 3.2 mmol/L (3.5-5.0)
[2020-08-13] MEDS: Enoxaparin 40 MG/0.4 ML SYR SUBCUT SCH (14:11)
[2020-08-13] MEDS: NS 0.9% 1000 ml BAG 1,000 ML IV SCH (15:39)
[2020-08-13] MEDS: Potassium Chloride LIQUID 20 MEQ/15 ML LIQUID PO SCH (20:28)
[2020-08-14] MEDS: NS 0.9% 1000 ml BAG 1,000 ML IV SCH ×2 (04:53→17:20)
[2020-08-14 08:08] LABS: ABS Eosinophils 0.5 10^3/ul (0-0.6); ABS Lymphocytes 1.7 10^3/ul (1.0-4.8); ABS Monocytes 0.6 10^3/ul (0-0.8); Eosinophil % 6.8 %; Hematocrit 36 % (35-47); Hemoglobin 11.6 g/dL (12.0-16.0); Lymphocyte % 25.4 %; Mean Corpuscular HGB Conc 32 g/dL (31-36); Mean Corpuscular Hemoglobin 25 pg (27-31); Mean Corpuscular Volume 78 fL (80-97); Mean Platelet Volume 8.4 fL (7.4-10.4); Platelet Count 239 10^3/uL (150-450); Red Cell Distribution Width 16 % (10-15); White Blood Count 6.8 10^3/uL (3.5-10.8)
[2020-08-14 08:18] LABS: Calcium 8.6 mg/dL (8.6-10.3); EGFR African American 146.7 (>60); EGFR Non-African American 121.2 (>60); Magnesium 1.9 mg/dL (1.9-2.7); Potassium 3.2 mmol/L (3.5-5.0)
[2020-08-14] MEDS ORDERED: Potassium Chlor 20 meq TAB.ER PO ONE ×2 (09:01→22:30)
[2020-08-14] MEDS: Potassium Chloride LIQUID 20 MEQ/15 ML LIQUID PO SCH (09:04)
[2020-08-14] MEDS: KCL 20 MEQ/100 ML IVPREMIX 20 MEQ/100 ML BAG IV SCH ×3 (10:03→17:20)
[2020-08-14] MEDS: Enoxaparin 40 MG/0.4 ML SYR SUBCUT SCH (12:45)
[2020-08-14] MEDS ORDERED: Lidocaine 2% JELLY 6 ML TOPICAL PRN (15:57)
[2020-08-15] MEDS ORDERED: Magnesium Sulfate 2 gm BAG 2 GM/50 ML BAG IVPB ONE (00:30)
[2020-08-15] MEDS: Ondansetron 4 mg VIAL 2 MG/ML 2 ml VIAL IV PRN (05:43)
[2020-08-15 06:11] LABS: Calcium 8.7 mg/dL (8.6-10.3); EGFR Non-African American 115.7 (>60); Potassium 3.3 mmol/L (3.5-5.0)
[2020-08-15] MEDS: KCL 20 MEQ/100 ML IVPREMIX 20 MEQ/100 ML BAG IV SCH ×2 (09:36→16:24)
[2020-08-15] MEDS: Enoxaparin 40 MG/0.4 ML SYR SUBCUT SCH (13:37)
[2020-08-15] MEDS: Calcium Carb (TUMS) 500 mg CHEW TAB PO PRN (21:31)
[2020-08-16 07:31] LABS: Calcium 8.5 mg/dL (8.6-10.3); Magnesium 1.6 mg/dL (1.9-2.7); Potassium 3.7 mmol/L (3.5-5.0)
[2020-08-16 07:36] LABS: EGFR African American 150.2 (>60); EGFR Non-African American 124.1 (>60)
[2020-08-16] MEDS ORDERED: Magnesium Sulfate 2 gm BAG 2 GM/50 ML BAG IVPB ONE (08:15)
[2020-08-16] MEDS: Calcium Carb (TUMS) 500 mg CHEW TAB PO PRN ×2 (09:21→14:10)
[2020-08-16] MEDS: Enoxaparin 40 MG/0.4 ML SYR SUBCUT SCH (13:45)
[2020-08-16 15:38] VITALS: BP 119/67
== END 2020-08-16 16:50 | disposition home or self-care (01) | DRG 872 ==
LOC: ED 10:00 → MED 13:09
PROVIDERS: ADMIT Internal Medicine; ATTEND Internal Medicine

== ENCOUNTER 2024-03-22 15:58 | Inpatient (IN) ==
[2024-03-22 17:28] LABS: High Sens Troponin Baseline 8 pg/mL (<15)
[2024-03-22 17:46] LABS: ALT 12 U/L (7-52); AST 30 U/L (13-39); Albumin 4.3 g/dL (3.5-5.7); Albumin/Globulin Ratio 1.4 (1-3); Alkaline Phosphatase 147 U/L (35-149); Anion Gap 16 mmol/L (2-16); Blood Urea Nitrogen 8 mg/dL (6-24); CO2 Carbon Dioxide 26 mmol/L (22-32); Calcium 7.3 mg/dL (8.6-10.3); Chloride 102 mmol/L (101-111); Creatinine, Serum 0.76 mg/dL (0.51-0.95); Glucose 120 mg/dL (70-100); Sodium 144 mmol/L (135-145); Total Bilirubin 0.5 mg/dL (0.2-1.0); Total Protein 7.3 g/dL (6.4-8.9); eGFR CKD-EPI 76.7 (>60)
[2024-03-22 18:08] LABS: Hematocrit 37.3 % (35-45); Hemoglobin 12.1 g/dL (11.5-14.3); Mean Corpuscular Hemoglobin 22.6 pg (27-33); Mean Corpuscular Hgb Conc 32.5 g/dL (31-36); Mean Corpuscular Volume 69.4 fL (80-97); Platelet Count 265 10^3/uL (150-450); Red Blood Count 5.37 10^6/uL (3.63-4.92); Red Cell Distribution Width 17.4 % (12-17); White Blood Count 8.3 10^3/uL (3.8-11.8)
[2024-03-22 18:31] LABS: High Sensitivity Troponin 1 Hr 8 pg/mL (<15)
[2024-03-22 18:55] LABS: ABS Basophils 0.1 10^3/uL (0.0-0.1); ABS Eosinophils 0.5 10^3/uL (0.0-0.5); ABS Lymphocytes 0.9 10^3/uL (1.0-4.8); ABS Monocytes 0.5 10^3/uL (0.0-0.9); ABS Neutrophils 6.3 10^3/uL (1.5-7.6); ABS Nucleated RBC 0.01 10^3/ul; Eosinophil % 5.5 %; Lymphocyte % 11.3 %; Microcytosis 2+; Nucleated Red Blood Cells % 0.1 %/100WBC (0.0-0.8)
[2024-03-22] MEDS: Potassium Chlor 20 meq TAB.ER PO ONE (19:58)
[2024-03-22] MEDS: Iodixanol 320 (CONTRAST) 100 ML SDV IV ONE (20:54)
[2024-03-22 21:31] LABS: Magnesium 0.6 mg/dL (1.9-2.7)
[2024-03-22] MEDS: Magnesium Sulfate IV 1GM/100ML 1 GM/100 ML BAG IV ONE ×2 (21:53→23:08)
[2024-03-22 22:07] LABS: Alcohol, S < 13 mg/dL (<13)
[2024-03-23] MEDS: KCL 20 MEQ/100 ML IVPREMIX 20 MEQ/100 ML BAG IV ONE (00:05)
[2024-03-23] MEDS: Enoxaparin 40 MG/0.4 ML SYR SUBCUT SCH (00:05)
[2024-03-23] MEDS: Magnesium Sulfate IV 1GM/100ML 1 GM/100 ML BAG IV ONE (02:03)
[2024-03-23 05:56] LABS: Anion Gap 11 mmol/L (2-16); Blood Urea Nitrogen 6 mg/dL (6-24); CO2 Carbon Dioxide 28 mmol/L (22-32); Calcium 6.8 mg/dL (8.6-10.3); Chloride 103 mmol/L (101-111); Creatinine, Serum 0.58 mg/dL (0.51-0.95); Glucose 110 mg/dL (70-100); Sodium 142 mmol/L (135-145); eGFR CKD-EPI 88.6 (>60)
[2024-03-23 06:52] LABS: Magnesium 1.6 mg/dL (1.9-2.7); Potassium Redraw 2.9 mmol/L (3.5-5.0)
[2024-03-23] MEDS: KCL 10 MEQ/50 ML IVPREMIX 10 MEQ/50 ML BAG IV SCH (08:02)
[2024-03-23 08:10] LABS: Phosphorus 2.6 mg/dL (2.5-5.0)
[2024-03-23] MEDS: Potassium Chloride LIQUID 20 MEQ/15 ML LIQUID PO ONE ×2 (08:14→12:52)
[2024-03-23] MEDS ORDERED: Sulfur Hexaflouride MICROSPHR 25 MG VIAL IV PRN (10:50)
[2024-03-23] MEDS ORDERED: Dextrose 50% Syringe 50 ml 25 GM/50 ML SYRINGE IV PUSH PRN (11:00)
[2024-03-23] MEDS: Aspirin EC 81 mg TAB.EC (enteric coated) PO SCH (12:07)
[2024-03-23 12:31] LABS: HDL Cholesterol 35.7 mg/dL
[2024-03-23] MEDS: Magnesium Sulf 4 GM/100 ML IV 4,000 MG/100 ML BAG IVPB ONE (14:26)
[2024-03-23 15:18] LABS: Calcium 7.3 mg/dL (8.6-10.3); Creatinine, Serum 0.52 mg/dL (0.51-0.95); Magnesium 1.6 mg/dL (1.9-2.7); Phosphorus 1.9 mg/dL (2.5-5.0)
[2024-03-23] MEDS: Potassium Phosphate IV 15 MMOL in NS 0.9% 250 ml 250 ML IVPB ONE (18:35)
[2024-03-24 00:43] LABS: Calcium 7.2 mg/dL (8.6-10.3); Creatinine, Serum 0.5 mg/dL (0.51-0.95); Magnesium 2.6 mg/dL (1.9-2.7); Phosphorus 2.5 mg/dL (2.5-5.0); Potassium 3.3 mmol/L (3.5-5.0); eGFR CKD-EPI 91.9 (>60)
[2024-03-24 07:43] LABS: Calcium 7.5 mg/dL (8.6-10.3); Creatinine, Serum 0.61 mg/dL (0.51-0.95); Magnesium 2.4 mg/dL (1.9-2.7); Phosphorus 2.9 mg/dL (2.5-5.0); Potassium 3.7 mmol/L (3.5-5.0); eGFR CKD-EPI 87.6 (>60)
[2024-03-24 11:48] VITALS: BP 132/67
== END 2024-03-24 16:18 | disposition home or self-care (01) | DRG 69 ==
LOC: ED 15:58 → EDHOLD 15:58 → OBSVTOIN 23:22 → SUATTDRO 23:22 → MEDTELE 03-23 08:50
PROVIDERS: ADMIT Internal Medicine; ATTEND Hospitalist